=== PATIENT | female | born 1955 | race Caucasian/White ===

== ENCOUNTER 2018-12-01 00:25 | Inpatient (IN) | payer OTHER ==
[~2018-12-01] VITALS: Ht 170.2 cm; Wt 171.0 kg
[2018-12-01] VITALS (41 sets, daily range): BP systolic 83–137; BP diastolic 47–78
[~2018-12-01 00:25] MED LIST: CIPRO500 MG PO; CIPROFLOXACIN500 M1 PO; FLAGYL500 MG PO; HYDROCODONE-AP1 EAC6 PO; METAMUCIL PAC1 UDPKT PO; MIRALAX17 GM PO; NORCO 5-325 TA1 EACH PO; OXYCODONE HCL 55 MG PO; ROXICODONE5 M2 PO; SENOKOT-S1 TA1 PO; ZOFRAN ODT4 MG PO
[2018-12-01] MEDS ORDERED: LISINOPRIL40 MG PO (00:33)
[2018-12-01 01:09] LABS: ANION GAP 13 mmol/L (7-16); BUN 20 mg/dL (7-18); CALCIUM 8.7 mg/dL (8.5-10.1); CHLORIDE 102 mmol/L (98-107); CO2 22 mmol/L (21-32); CREATININE 1.4 mg/dL (0.6-1.3); GLUCOSE 161 mg/dL (70-99); POTASSIUM 3.6 mmol/L (3.5-5.1); SODIUM 137 mmol/L (136-145)
[2018-12-01 01:18] LABS: ALBUMIN 3.3 g/dL (3.4-5.0); ALKALINE PHOSPHATASE 136 U/L (46-116); LIPASE 110 U/L (73-393); SGOT 19 U/L (15-37); SGPT 36 U/L (30-65); TOTAL BILIRUBIN 0.5 mg/dL (<0.1-1.0); TOTAL PROTEIN 6.6 g/dL (6.4-8.2); TROPONIN-I LEVEL <0.06 ng/mL (<0.06)
[2018-12-01 02:42] LABS: HEMATOCRIT 45.2 % (37.0-47.0); HEMOGLOBIN 14.3 gm/dL (12.0-15.0); MCHC 31.7 g/dL (28.0-37.0); MCV 88.3 fL (80.0-100.0); MPV 8.2 fl. (7.2-11.1); RBC 5.12 mil/uL (4.20-5.00); RDW-CV 14.8 % (10.5-14.5); WBC 28.6 thou/uL (4.0-11.0)
[2018-12-01 08:40] LABS: URINE BILIRUBIN NEGATIVE (Negative); URINE BLOOD 3+ (Negative); URINE CLARITY CLEAR; URINE COLOR YELLOW; URINE GLUCOSE-RANDOM NEGATIVE (Negative); URINE KETONES NEGATIVE (Negative); URINE LEUKOCYTES-REFLEX NEGATIVE (Negative); URINE NITRITE-REFLEX NEGATIVE (Negative); URINE PROTEIN 1+ (Negative); URINE SPECIFIC GRAVITY 1.025 (1.005-1.030); URINE UROBILINOGEN 0.2 E.U./dl (0.2-1.0)
[2018-12-01 08:48] LABS: CASTS ND /LPF (None Seen); SQUAMOUS NONE SEEN /LPF (0-3); URINE RBC 3-10 Few /HPF (0-2); URINE WBC-REFLEX 0-5 Rare /HPF (0-5)
[2018-12-01 08:49] LABS: HYALINE CASTS >10 Many /LPF (None Seen); MUCUS >6 Heavy strn/LPF (None Seen)
[2018-12-01 08:50] LABS: CRYSTALS None Seen /LPF (None Seen)
[2018-12-01 15:24] LABS: HEMATOCRIT 42.9 % (37.0-47.0); HEMOGLOBIN 13.9 gm/dL (12.0-15.0); MCH 27.8 pg (26.0-34.0); MCHC 32.4 g/dL (28.0-37.0); MCV 85.9 fL (80.0-100.0); MPV 8.2 fl. (7.2-11.1); NUCLEATED RBCS 0 /100WBC; PLATELET COUNT* 335 thou/uL (150-400); RBC 4.99 mil/uL (4.20-5.00); WBC 28.1 thou/uL (4.0-11.0)
[2018-12-01 15:46] LABS: ABSOLUTE LYMPHOCYTES 0.8 thou/uL (0.8-5.3); ABSOLUTE MONOCYTES 1.1 thou/uL (0.0-1.2); ABSOLUTE NEUTROPHILS 26.1 thou/uL (1.6-8.1)
[2018-12-01 15:47] LABS: CALCIUM 8.3 mg/dL (8.5-10.1); CREATININE 1.3 mg/dL (0.6-1.3); MAGNESIUM 1.6 mg/dL (1.8-2.4); PLATELET ESTIMATE ADEQUATE; POTASSIUM 4.2 mmol/L (3.5-5.1); TOTAL BILIRUBIN 0.7 mg/dL (<0.1-1.0); TOTAL PROTEIN 6.8 g/dL (6.4-8.2)
--- NOTE | 2018-12-01 17:38 | EKG ---
[place] [address] ELECTROCARDIOGRAM REPORT Name: DIOGENES SHEA Room: [address] ADM IN .R.#: [id number] Admission: 12/01/18 Attend Phys: Anil Serrano MD Discharge: Date of : 59 Report #: [id number] THIS REPORT FOR: //name// [facility] ED Test Date: 2018-12-01 Test Time: 00:45:30 Pat Name: DIOGENES SHEA Department: Room: [facility] Gender: F Domestic Housekeeper: : 1955 Requested By: Tal Mayes Order Number: [id number] MD: Terry Reveles Measurements Intervals [place] Rate: 67 P: 0 HI: 101 QRS: 30 QRSD: 100 T: QT: 483 QTc: 510 Interpretive Statements Sinus rhythm Short HI interval Prolonged QT interval Borderline repolarization abnormality Minimal ST elevation, anterior leads Prolonged QT interval No previous ECG available for comparison Electronically Signed On 12-01-2018 17:38:10 CDT by Terry Reveles [email or web address] <ELECTRONICALLY SIGNED> By: Terry Reveles MD, [facility] 12/01/18 1738 0045 0045 Terry Reveles MD, [facility] /EPI
[2018-12-02] VITALS (8 sets, daily range): BP systolic 111–140; BP diastolic 48–81
[2018-12-02 02:02] LABS: HEMATOCRIT 39.5 % (37.0-47.0); MCHC 32.9 g/dL (28.0-37.0); MCV 85.3 fL (80.0-100.0); MPV 8.6 fl. (7.2-11.1); RBC 4.63 mil/uL (4.20-5.00); WBC 24.6 thou/uL (4.0-11.0)
[2018-12-02 02:12] LABS: CALCIUM 8.3 mg/dL (8.5-10.1); MAGNESIUM 2.4 mg/dL (1.8-2.4)
[2018-12-02] MEDS ORDERED: EPIPEN 2-P0.3 MG/0.3 IM (07:28)
[2018-12-02] MEDS ORDERED: PREDNISONE 10 M10 MG PO (07:28)
[2018-12-02 12:51] LABS: SMEAR FOR EOSINOPHILS No Eosinophils Seen
[2018-12-02 16:06] LABS: GLYCOHEMOGLOBIN (HGB A1C) 7.6 % (4.8-5.6)
== END 2018-12-02 10:35 | disposition home or self-care (01) | DRG 916 ==
LOC: M.ERS 00:25 → M.ICU 01:53 → M.TBA-ER 01:53 → M.ICU 02:16
PROVIDERS: Emergency Medicine Emergency Medical Services; Internal Medicine; ADMIT Family Medicine
DX: T88.6XXA Anaphylactic reaction due to adverse effect of correct drug or medicament properly administered, initial encounter (principal); N17.9 Acute kidney failure, unspecified; R65.10 Systemic inflammatory response syndrome (SIRS) of non-infectious origin without acute organ dysfunction; N10 Acute pyelonephritis; Z68.43 Body mass index [BMI] 50.0-59.9, adult; E66.01 Morbid (severe) obesity due to excess calories; I10 Essential (primary) hypertension; T36.1X5A Adverse effect of cephalosporins and other beta-lactam antibiotics, initial encounter; R73.9 Hyperglycemia, unspecified; T38.0X5A Adverse effect of glucocorticoids and synthetic analogues, initial encounter; J02.9 Acute pharyngitis, unspecified; J30.9 Allergic rhinitis, unspecified; Z88.0 Allergy status to penicillin; Z90.49 Acquired absence of other specified parts of digestive tract; Y92.89 Other specified places as the place of occurrence of the external cause

== ENCOUNTER → 2018-12-07 | Outpatient (CLI) | payer OTHER ==
[~2018-12-07] MED LIST changes: +EPIPEN 2-P0.3 MG/0.3 IM; +LISINOPRIL40 MG PO; +PREDNISONE 10 M10 MG PO
== END ==
LOC: M.LAB 14:38
DX: R19.7 Diarrhea, unspecified (principal)